=== PATIENT | male | born 1950 | race Caucasian/White ===

== ENCOUNTER 2017-02-12 19:57 | Observation (INO) | payer OTHER ==
[~2017-02-12] VITALS: Ht 185.4 cm; Wt 158.0 kg
[~2017-02-12 19:57] MED LIST: ALTACE10 MG PO; ASPIRIN81 M1 PO; PRILOSEC20 MG PO; SIMVASTATIN10 MG PO; SYNTHROID100 MCG PO
[2017-02-12 20:53] LABS: CHLORIDE 103 mEq/L (99-109); SODIUM 139 mEq/L (136-147)
[2017-02-12 20:54] LABS: GLUCOSE 164 mg/dL (70-99)
[2017-02-12 20:56] LABS: ANION GAP 10 MEQ/L (2-14)
[2017-02-12 20:58] LABS: GFR ESTIMATE (CALCULATED) > 59 mL/min/
[2017-02-12 20:59] LABS: UREA NITROGEN (BUN) 15 mg/dL (9-23)
[2017-02-12 21:00] LABS: D-DIMER ELISA 0.45 mg/L FEU (< 0.57); INTER. NORMALIZED RATIO 1.1; PROTHROMBIN TIME 10.7 (9.2-11.2); PTT 27.6 (25-32)
[2017-02-12 21:06] LABS: TROP-I INTERPRETATION NEGATIVE; TROPONIN-I 0.02 ng/mL (0.0-0.30)
[2017-02-12 21:12] LABS: HEMATOCRIT 45.9 % (38.0-50.0); MCH 29.3 PG (29.0-34.0); MCHC 33.1 G/DL (30.0-36.0); MCV 88.4 FL (86-99); MEAN PLAT.VOLUME 11.3 uM^3 (9.0-12.4); PLATELET COUNT 231 K/uL (156-360); RBC DIS.WIDTH-CV 13.8 % (11.8-14.6); RBC DIS.WIDTH-SD 44.4 % (39-53); RED BLOOD COUNT 5.19 M/uL (4.00-5.50); WHITE BLOOD COUNT 8.7 K/uL (4.1-10.2)
[2017-02-12] MEDS ORDERED: LEVO-T137 MCG PO (22:41)
[2017-02-12] MEDS ORDERED: ZYBAN 150 MG T150 MG PO (22:42)
[2017-02-12] MEDS ORDERED: ASPIR 8181 M1 PO (22:42)
[2017-02-12] MEDS ORDERED: METFORMIN HCL500 M1 PO (22:43)
[2017-02-12] MEDS ORDERED: METOPROLOL TART25 MG PO (22:43)
[2017-02-12] MEDS ORDERED: ARICEPT10 MG PO (22:43)
[2017-02-12] MEDS ORDERED: RAMIPRIL10 MG PO (22:44)
[2017-02-12] MEDS ORDERED: PRILOSEC20 MG PO (22:44)
[2017-02-12] MEDS ORDERED: ATORVASTATIN CA20 MG PO (22:44)
[2017-02-12] MEDS ORDERED: HYDROCODON-ACE1 EAC8 PO (22:45)
[2017-02-12] MEDS ORDERED: VITAMIN D2000 UNI1 PO (22:46)
[2017-02-12] MEDS ORDERED: B COMPLETE1 EACH PO (22:46)
[2017-02-12] MEDS ORDERED: COQ-10100 MG PO (22:46)
[2017-02-13 01:34] VITALS: BP 113/68
[2017-02-13 03:36] LABS: TROP-I INTERPRETATION NEGATIVE; TROPONIN-I 0.02 ng/mL (0.0-0.30)
[2017-02-13 08:16] VITALS: BP 129/81
[2017-02-13 09:29] LABS: TROP-I INTERPRETATION NEGATIVE; TROPONIN-I 0.02 ng/mL (0.0-0.30)
== END 2017-02-13 16:17 | disposition home or self-care (01) ==
LOC: EME 19:57 → EDOF 23:59 → 5WEST 23:59 → EDOF 23:59 → 5WEST 02-13 01:23
PROVIDERS: Emergency Medicine; Hospitalist
DX: R07.89 Other chest pain (principal); I10 Essential (primary) hypertension; E78.5 Hyperlipidemia, unspecified; E66.01 Morbid (severe) obesity due to excess calories; E03.9 Hypothyroidism, unspecified; R91.1 Solitary pulmonary nodule; K21.9 Gastro-esophageal reflux disease without esophagitis; Z68.42 Body mass index [BMI] 45.0-49.9, adult; Z87.891 Personal history of nicotine dependence
CPT/HCPCS: 71020; 71275; 80048; 84484; 85027; 85379; 85610; 85730; 93005; 93306; 93970; 94640; 99281; 99285; G0378; J1644

== ENCOUNTER 2017-02-14 19:03 | Inpatient (IN) | payer OTHER ==
[~2017-02-14] VITALS: Ht 185.4 cm; Wt 164.5 kg
[~2017-02-14 19:03] MED LIST changes: +ARICEPT10 MG PO; +ASPIR 8181 M1 PO; +ATORVASTATIN CA20 MG PO; +B COMPLETE1 EACH PO; +COQ-10100 MG PO; +HYDROCODON-ACE1 EAC8 PO; +LEVO-T137 MCG PO; +METFORMIN HCL500 M1 PO; +METOPROLOL TART25 MG PO; +RAMIPRIL10 MG PO; +VITAMIN D2000 UNI1 PO; +ZYBAN 150 MG T150 MG PO
[2017-02-14 19:41] LABS: HEMATOCRIT 45.1 % (38.0-50.0); MCH 28.9 PG (29.0-34.0); MCV 87.6 FL (86-99); MEAN PLAT.VOLUME 10.6 uM^3 (9.0-12.4); PLATELET COUNT 239 K/uL (156-360); RBC DIS.WIDTH-CV 13.8 % (11.8-14.6); RBC DIS.WIDTH-SD 44.2 % (39-53); RED BLOOD COUNT 5.15 M/uL (4.00-5.50); WHITE BLOOD COUNT 8.4 K/uL (4.1-10.2)
[2017-02-14 19:50] LABS: CHLORIDE 106 mEq/L (99-109); POTASSIUM 4.1 mEq/L (3.7-5.4); SODIUM 142 mEq/L (136-147)
[2017-02-14 19:52] LABS: GLUCOSE 146 mg/dL (70-99)
[2017-02-14 19:53] LABS: ANION GAP 13 MEQ/L (2-14)
[2017-02-14 19:56] LABS: GFR ESTIMATE (CALCULATED) > 59 mL/min/; UREA NITROGEN (BUN) 14 mg/dL (9-23)
[2017-02-14 20:27] LABS: TROP-I INTERPRETATION NEGATIVE; TROPONIN-I 0.29 ng/mL (0.0-0.30)
[2017-02-14 21:31] LABS: BASE EXCESS 1.6 mEq/L (-3 to +3); BICARBONATE 25.9 mEq/L (22-26); CARBOXY HGB 1.2 % (0-5); METHEMOGLOBIN 0.9 % (0-1.5); PCO2 39 mm Hg (35-45); PO2 69 mm Hg (80-100); pH 7.43 (7.35-7.45)
[2017-02-14 21:32] LABS: COMMENTS - BLOOD GASES A+C+; DEVICE ROOM AIR; FI02 0.21 %; SITE RR; TOTAL RESP RATE 25 resp/min
[2017-02-15 02:28] LABS: TROP-I INTERPRETATION NEGATIVE; TROPONIN-I 0.17 ng/mL (0.0-0.30)
[2017-02-15 07:06] LABS: MCH 28.9 PG (29.0-34.0); MCHC 32.5 G/DL (30.0-36.0); MCV 88.9 FL (86-99); MEAN PLAT.VOLUME 10.8 uM^3 (9.0-12.4); PLATELET COUNT 240 K/uL (156-360); RBC DIS.WIDTH-CV 14.4 % (11.8-14.6); RBC DIS.WIDTH-SD 46.2 % (39-53); RED BLOOD COUNT 4.95 M/uL (4.00-5.50); WHITE BLOOD COUNT 8.5 K/uL (4.1-10.2)
[2017-02-15 07:16] LABS: INTER. NORMALIZED RATIO 1.1
[2017-02-15 07:44] LABS: TROP-I INTERPRETATION INDETERMINATE; TROPONIN-I 0.31 ng/mL (0.0-0.30)
[2017-02-15 07:55] LABS: PTT 54.1 (25-32)
[2017-02-15 12:45] VITALS: BP 140/97
[2017-02-15 14:08] LABS: INTER. NORMALIZED RATIO 1.1; PROTHROMBIN TIME 10.7 (9.2-11.2); PTT 33.4 (25-32)
[2017-02-15 15:44] VITALS: BP 125/62
[2017-02-15 19:42] VITALS: BP 143/71
[2017-02-15 20:56] LABS: TROP-I INTERPRETATION NEGATIVE; TROPONIN-I 0.17 ng/mL (0.0-0.30)
[2017-02-15 23:25] VITALS: BP 138/66
[2017-02-16 05:05] VITALS: BP 146/68
[2017-02-16 07:54] LABS: POINT-OF-CARE METER ID UU13113696
[2017-02-16 14:00] VITALS: BP 147/86
[2017-02-16 15:28] LABS: POINT-OF-CARE METER ID UU14174216
[2017-02-16 16:57] LABS: POINT-OF-CARE METER ID UU14174216
[2017-02-16 20:00] VITALS: BP 147/74
[2017-02-16 23:55] VITALS: BP 152/82
[2017-02-17 04:00] VITALS: BP 126/82
[2017-02-17 06:55] LABS: HEMATOCRIT 39.2 % (38.0-50.0); MCH 28.8 PG (29.0-34.0); MCHC 32.1 G/DL (30.0-36.0); MCV 89.7 FL (86-99); PLATELET COUNT 213 K/uL (156-360); RBC DIS.WIDTH-CV 14.3 % (11.8-14.6); RBC DIS.WIDTH-SD 46.3 % (39-53); RED BLOOD COUNT 4.37 M/uL (4.00-5.50); WHITE BLOOD COUNT 9.9 K/uL (4.1-10.2)
[2017-02-17 07:02] LABS: Estimated Average Glucose 189 mg/dL (70-123); HEMOGLOBIN A1c (GLYCOHEMOGLOB) 8.2 % HGB (Below 5.7)
[2017-02-17 07:18] LABS: ANION GAP 11 MEQ/L (2-14); CHLORIDE 104 MEQ/L (99-109); GFR ESTIMATE (CALCULATED) > 59 mL/min/; GLUCOSE 149 mg/dL (70-99); SAMPLE HEMOLYSIS CHECK 0; SAMPLE ICTERIC CHECK 0; SAMPLE LIPEMIA CHECK 0; SODIUM 140 MEQ/L (136-147); UREA NITROGEN (BUN) 11 mg/dL (9-23)
[2017-02-17 08:07] VITALS: BP 141/85
[2017-02-17 08:12] LABS: POINT-OF-CARE METER ID UU14174216
[2017-02-17 16:39] LABS: POINT-OF-CARE METER ID UU13113819
[2017-02-17 20:30] VITALS: BP 144/84
[2017-02-17 22:27] LABS: POINT-OF-CARE METER ID UU14174216
[2017-02-18 04:00] VITALS: BP 131/82
[2017-02-18 06:47] LABS: MCH 28.7 PG (29.0-34.0); MCHC 31.6 G/DL (30.0-36.0); MCV 90.9 FL (86-99); MEAN PLAT.VOLUME 11.3 uM^3 (9.0-12.4); PLATELET COUNT 189 K/uL (156-360); RBC DIS.WIDTH-CV 14.6 % (11.8-14.6); RBC DIS.WIDTH-SD 48.9 % (39-53); RED BLOOD COUNT 4.18 M/uL (4.00-5.50); WHITE BLOOD COUNT 9.1 K/uL (4.1-10.2)
[2017-02-18 07:08] LABS: ANION GAP 9 MEQ/L (2-14); CHLORIDE 101 MEQ/L (99-109); GFR ESTIMATE (CALCULATED) > 59 mL/min/; GLUCOSE 210 mg/dL (70-99); POTASSIUM 4.6 MEQ/L (3.7-5.4); SAMPLE HEMOLYSIS CHECK 0; SAMPLE ICTERIC CHECK 0; SAMPLE LIPEMIA CHECK 0; SODIUM 136 MEQ/L (136-147); UREA NITROGEN (BUN) 13 mg/dL (9-23)
[2017-02-18 08:55] VITALS: BP 135/84
[2017-02-18] MEDS ORDERED: ATORVASTATIN CA20 MG PO (10:43)
[2017-02-18] MEDS ORDERED: NITROSTAT0.4 MG SL (10:43)
[2017-02-18] MEDS ORDERED: ASPIR 8181 M1 PO (10:44)
[2017-02-18] MEDS ORDERED: RAMIPRIL10 MG PO (10:44)
[2017-02-18] MEDS ORDERED: METOPROLOL TART25 MG PO (10:44)
[2017-02-18] MEDS ORDERED: BRILINTA90 MG PO (10:45)
[2017-02-18] MEDS ORDERED: PRILOSEC20 MG PO (10:45)
[2017-02-18] MEDS ORDERED: MEDROL DOSEPAK4 MG PO (10:46)
[2017-02-18] MEDS ORDERED: VENTOLIN HFA18 GM IH (10:47)
[2017-02-18] MEDS ORDERED: DOXYCYCLINE HY100 MG PO (10:48)
[2017-02-18] MEDS ORDERED: METFORMIN HCL500 M1 PO (12:03)
== END 2017-02-18 12:23 | disposition home or self-care (01) | DRG 246 ==
LOC: EME 19:03 → EDOF 02-15 00:04 → 4SOUTH 02-15 00:04 → 4EAST 02-16 13:02
PROVIDERS: Emergency Medicine; Family Medicine; Internal Medicine; Internal Medicine Cardiovascular Disease
DX: I25.110 Atherosclerotic heart disease of native coronary artery with unstable angina pectoris (principal); I25.42 Coronary artery dissection; J44.1 Chronic obstructive pulmonary disease with (acute) exacerbation; J96.00 Acute respiratory failure, unspecified whether with hypoxia or hypercapnia; G47.33 Obstructive sleep apnea (adult) (pediatric); E66.01 Morbid (severe) obesity due to excess calories; Z68.42 Body mass index [BMI] 45.0-49.9, adult; I11.9 Hypertensive heart disease without heart failure; E78.5 Hyperlipidemia, unspecified; E03.9 Hypothyroidism, unspecified; K21.9 Gastro-esophageal reflux disease without esophagitis; M79.7 Fibromyalgia; G89.29 Other chronic pain; I27.2 Other secondary pulmonary hypertension; R91.8 Other nonspecific abnormal finding of lung field; I83.11 Varicose veins of right lower extremity with inflammation; I83.12 Varicose veins of left lower extremity with inflammation; Z87.891 Personal history of nicotine dependence; Z91.19 Patient's noncompliance with other medical treatment and regimen
CPT/HCPCS: 36600; 71010; 71020; 71275; 80048; 82803; 82948; 83036; 84484; 85027; 85347; 85379; 85610; 85730; 93005; 93306; 93970; 94640; 94640 76; 94799; 99202; 99281; 99285; C1725; C1760; C1769; C1874; C1876; C1887; C1894; G0378; J0583; J1644; J1815; J2250; J3010; J7030; J7050; J7512